=== PATIENT | male | born 1975 | race Caucasian/White ===

== ENCOUNTER 2020-11-10 15:46 | Emergency (ER) | payer OTHER, SELFPAY ==
--- NOTE | 2020-11-10 15:57 | ED.LOWEXIN ---
HPI - Extremity Injury (Lower) General Chief Complaint: Extremity Injury, Lower Stated Complaint: Right Leg Pain Time Seen by Provider: 11/10/20 16:00 Source: patient and RN notes reviewed Mode of arrival: ambulatory Limitations: no limitations History of Present Illness HPI Narrative: 45-year-old male since concern for right upper leg pain. Reports 1-1/2 weeks ago he fell through a roof, up to his upper right leg. He denies any immediate pain. Reports his right upper outer leg hurts when he bends over and, the leg below it feels numb when he bends over. He denies pain with walking, tenderness to touch, bruising, redness, abrasions, open Skin, swelling, groin pain, abdominal pain. MD complaint: leg injury Related Data Allergies Allergy/AdvReac Type Severity Reaction Status Date / Time No Known Allergies Allergy Unknown Unverified 07/15/14 13:17 Review of Systems Review of Systems: Narrative: CONSTITUTIONAL: Denies malaise, chills, sweats, or fever. CARDIOVASCULAR: Denies chest pain, palpitations, or edema. RESPIRATORY: Denies cough or dyspnea. SKIN: Denies open skin, abrasions, lacerations MUSCULOSKELETAL: Reports right upper leg pain associated with distal numbness All systems reviewed & are unremarkable except as noted in HPI and below PMFSH Comments At time of signature, agree with nursing past medical, surgical, social and family history. There is no relevant family history pertinent to the presenting complaint Exam Narrative: Exam Narrative: GENERAL: Well-appearing, well-nourished, and in no acute distress. HEAD: Normocephalic, atraumatic. EYES: PERRLA, conjunctivae clear NECK: Supple. CHEST: Speaks in full sentences. No respiratory distress. HEART: Regular rate and rhythm. Normal and equal peripheral pulses. EXTREMITIES: Right leg, hip normal strength and sensation, normal range of motion. No edema or ecchymosis. 5/5 strength with hip flexion and extension. Normal sensation with sensitivity to light touch and pain. No generalized or point tenderness. No open wounds, no skin tenting, no devitalized tissue or atrophy, no trophic changes, no obvious deformity, alignment normal, nearby joints and structures intact. Distal pulses palpable and equal bilaterally, skin warm, dry, pink. Capillary refill less than 3 seconds. Normal gait SKIN: Warm, dry, no rash. NEURO: Alert and oriented x3. PSYCH: Normal mood and affect Course Course Emergency Course: Patient is aware of diagnosis, understands and agrees to treatment plan. Anticipatory guidance given. Patient agrees to follow-up as directed and is aware of reasons to seek care at the emergency department. Portions of this record may have been created with voice recognition software Vital Signs Vital signs: Vital Signs Temperature 98.5 F 11/10/20 16:05 Pulse Rate 65 11/10/20 16:05 Respiratory Rate 16 11/10/20 16:05 Blood Pressure 118/62 11/10/20 16:05 Pulse Oximetry 98 11/10/20 16:05 Temperature 98.5 F 11/10/20 16:05 Pulse Rate 65 11/10/20 16:05 Respiratory Rate 16 11/10/20 16:05 Blood Pressure 118/62 11/10/20 16:05 Pulse Oximetry 98 11/10/20 16:05 Reviewed. MDM - Extremity Injury (Lower) MDM Narrative Medical decision making narrative: Patients injury and pain is consistent with musculoskeletal etiology. No signs of neurological or vascular compromise on exam. Compartments and tissues are soft without signs of compartment syndrome. Pain is felt appropriate for further evaluation on an outpatient basis. Critical Care Time Critical Care Time Critical Care Time: No Discharge Plan Discharge Clinical Impression: Leg pain Qualifiers: Laterality: right Qualified Code(s): M79.604 - Pain in right leg Patient Disposition: Home, Self-Care Condition: Stable Instructions: Musculoskeletal Pain (ED) Additional Instructions: Avoid activities that cause pain until the pain subsides. Ice to the area 20-30 minutes 4-6 times a
[2020-11-10 16:05] VITALS: BP 118/62; PULSE 65; RESP 16; TEMP 36.9; O2SAT 98
== END 2020-11-10 16:14 | disposition home or self-care (01) ==
PROVIDERS: Emergency Provider Nurse Practitioner
DX: M79.651 Pain in right thigh (principal)
CPT/HCPCS: 99213; G0463

== ENCOUNTER 2021-04-24 13:58 | Emergency (ER) | payer OTHER, SELFPAY ==
--- NOTE | ~2021-04-24 | XR_ITS ---
EXAMINATION: XR finger 2nd LT min 2V DATE: 04/24/2021 14:32 INDICATION: Left hand second digit injury. TECHNIQUE: 4 views of left hand second digit were obtained. COMPARISON: None. FINDINGS: Bone alignment is normal. No fracture. Joint spaces are well maintained. There is a lacerat ion of the second digit. IMPRESSION: 1. No fracture or radiopaque foreign body. Reviewed, dictated and finalized at location A.
[2021-04-24 14:06] VITALS: BP 111/71; PULSE 51; RESP 16; TEMP 36.7; O2SAT 99
--- NOTE | 2021-04-24 14:22 | ED.WOUNDLAC ---
HPI - Wound/Laceration General Chief Complaint: Wound/Laceration Stated Complaint: Laceration on finger Time Seen by Provider: 04/24/21 14:19 Source: patient and RN notes reviewed Mode of arrival: ambulatory Limitations: no limitations History of Present Illness HPI narrative: Patient presents today with a laceration to his left second finger that was sustained approximately 1 hour prior to exam. He was at work, smashed his finger while working on a car, lacerating it. He does report some numbness to the finger and denies tingling. Currently rates the pain 11/02. He is up-to-date on his tetanus vaccine. He has tried no [id number] interventions prior to arrival. Related Data Home Medications Medication Instructions Recorded Confirmed No Home Medications 04/24/21 04/24/21 Allergies Allergy/AdvReac Type Severity Reaction Status Date / Time No Known Allergies Allergy Unknown Unverified 07/15/14 13:17 Review of Systems Review of Systems: Narrative: CONSTITUTIONAL: Denies body aches, fever, chills, or sweats. EYES: Denies visual changes, redness, or discharge. ENT: Denies rhinorrhea, congestion, sore throat, or otalgia. CARDIOVASCULAR: Denies chest pain, palpitations, or edema. RESPIRATORY: Denies cough or dyspnea. GASTROINTESTINAL: Denies abdominal pain, nausea, vomiting, or diarrhea. GENITOURINARY: Denies dysuria or hematuria. SKIN: Denies rash, itching, or wounds. MUSCULOSKELETAL: Denies back pain, or myalgia. + Left second finger injury NEUROLOGIC: Denies headache, numbness, tingling, or weakness. PSYCH: Denies depression or anxiety. PMFSH Comments At time of signature, I have reviewed and agree with nursing past medical, surgical, social and family history unless otherwise noted. Please see nursing chart for further information. There is no relevant family history pertinent to the presenting complaint Exam Narrative: Exam Narrative: GENERAL: Well-appearing, well-nourished, and in no acute distress. HEAD: Normocephalic, atraumatic. EYES: EOMI. No redness or drainage. Conjunctivae normal. ENT: Mucous membranes pink and moist. NECK: Normal AROM. CHEST: No respiratory distress. EXTREMITIES: Left second finger: 2 cm full-thickness irregular laceration to the middle phalanx. Distal sensation intact. Capillary refill normal. Full AROM against resistance. SKIN: Warm, dry, no rash. Capillary refill normal. Normal skin turgor. NEURO: No focal deficits. Alert and oriented x3. Gait steady. PSYCH: Normal affect. No signs of depression or anxiety. Course Vital Signs Vital signs: Vital Signs Temperature 98.1 F 04/24/21 14:06 Pulse Rate 51 L 04/24/21 14:06 Respiratory Rate 16 04/24/21 14:06 Blood Pressure 111/71 04/24/21 14:06 Pulse Oximetry 99 04/24/21 14:06 Temperature 98.1 F 04/24/21 14:06 Pulse Rate 51 L 04/24/21 14:06 Respiratory Rate 16 04/24/21 14:06 Blood Pressure 111/71 04/24/21 14:06 Pulse Oximetry 99 04/24/21 14:06 Reviewed Procedures Laceration Laceration 1: Date: 04/24/21 Time: 15:00 Site: hand (Left second finger) Size (cm): 2 Description: irregular Local Anesthetic: lidocaine 1% Amount of anesthesia used (mL): 8 (Digital block) Pre-repair: wound explored and irrigated ====== Skin Level ====== Skin layer closed with: nylon Size (cm): 5-0 Number of sutures: 5 Technique: simple, interrupted ====== Subcutaneous Layer ====== ====== Muscle Layer ====== ====== Tendon Layer ====== Dressing: Dressed with nonadherent dressing and splint. Dressing applied by RN. Patient tolerated procedure well. Nerve Block Nerve Block 1: Nerve block date: 04/24/21 Nerve block time: 14:50 Time out performed: Yes Local Anesthetic: lidocaine 1% Amount of anesthesia used (mL): 8 Side: left (Second finger) Nerve Blocks:
--- NOTE | 2021-04-24 14:28 | PC.NURSE ---
1425 in xray. wound was cleansed during triage.
== END 2021-04-24 15:29 | disposition home or self-care (01) ==
PROVIDERS: Emergency Provider Nurse Practitioner
DX: S61.211A Laceration without foreign body of left index finger without damage to nail, initial encounter (principal); X58.XXXA Exposure to other specified factors, initial encounter; Y99.0 Civilian activity done for income or pay
CPT/HCPCS: 12001; 73140; 99213; G0463

== ENCOUNTER 2022-05-26 21:53 | Emergency (ER) | payer SELFPAY ==
[2022-05-26 22:05] VITALS: BP 148/83; PULSE 49; RESP 20; TEMP 36.6; O2SAT 100
[2022-05-26] MEDS: SODIUM CHLORIDE 0.9% IV 1,000 ML 999 ML IV CONT (22:58)
[2022-05-26] MEDS: KETOROLAC 30 MG/ML VIAL (*BKC) IV PUSH (22:59)
--- NOTE | 2022-05-26 23:04 | ED.HA ---
HPI - Headache General Chief Complaint: Headache Stated Complaint: headache Time Seen by Provider: 05/26/22 22:27 History of Present Illness HPI Narrative: Patient is a 47-year-old male who presents ER with headache. Throbbing frontal. Ongoing for last 2 days. Gradually worsening. Reports he will occasionally feel hot. No documented fevers. Denies runny nose or sore throat or productive cough. No focal numbness or weakness in arm or leg. Notes neck stiffness. Reports his boss is infected with COVID-19 but has not been around him. No chest pain or chest pressure. No thunderclap onset. Related Data Home Medications Medication Instructions Recorded Confirmed No Home Medications 04/24/21 04/24/21 Allergies Allergy/AdvReac Type Severity Reaction Status Date / Time No Known Allergies Allergy Unknown Verified 05/26/22 22:59 Review of Systems Review of Systems: All systems reviewed & are unremarkable except as noted in HPI and below Constitutional: Constitutional: Denies chills, Reports fatigue and Denies fever(s) Eyes: Eyes: Denies change in vision and Denies photophobia ENT: Denies nasal congestion and Denies sore throat Respiratory: Respiratory: Denies cough and Denies dyspnea Gastrointestinal: Gastrointestinal: Denies abdominal pain, Denies nausea and Denies vomiting Neurologic: Denies syncope, Reports headache(s), Denies focal weakness and Denies numbness PMFSH Past Medical History Medical History (Updated 05/27/22 @ 00:45 by Ever Owusu MD) Healthy adult male Surgical History Surgical History (Updated 05/26/22 @ 23:06 by Ever Owusu MD) No history of previous surgery Social History Social History (Updated 05/26/22 @ 23:07 by Ever Owusu MD) Smoking status: Current every day smoker Exam Narrative: GENERAL: Well-appearing, well-nourished, and in no acute distress. HEAD: Normocephalic, atraumatic. EYES: PERRL and EOMI. NECK: Supple. Full range of motion without meningismus. CHEST: Clear to auscultation. No respiratory distress. HEART: Regular rate and rhythm. Normal peripheral pulses. ABDOMEN: Soft, nontender, nondistended. EXTREMITIES: Normal range of motion. No edema. SKIN: Warm, dry, no rash. NEURO: Alert and oriented x3. PSYCH: Normal mood and affect. Course Course Emergency Course: Headache improved with Toradol and fluids. COVID-negative. Discharge home. Vital Signs Vital signs: Vital Signs Temperature 97.8 F 05/26/22 22:05 Pulse Rate 49 L 05/26/22 22:05 Respiratory Rate 20 05/26/22 22:05 Blood Pressure 148/83 H 05/26/22 22:05 Pulse Oximetry 100 05/26/22 22:05 Oxygen Delivery Room Air 05/26/22 22:05 Temperature 97.8 F 05/26/22 22:05 Pulse Rate 42 L 05/27/22 00:28 Respiratory Rate 13 05/27/22 00:28 Blood Pressure 108/71 05/27/22 00:28 Pulse Oximetry 97 05/26/22 23:45 Oxygen Delivery Room Air 05/26/22 22:05 MDM - Headache Lab Data Labs: Lab Results 05/26/22 Range/Units 22:57 SARS-CoV-2 RNA (RT-PCR) Negative Discharge Plan Discharge Clinical Impression: Headache Patient Disposition: Home, Self-Care Condition: Stable Instructions: General Headache (ED) Additional Instructions: Return the ER if you have fever over 100.4 ?F, you cannot keep down food or water, you have chest pain or shortness of breath, you have additional concerns. Take Tylenol or ibuprofen as needed for headache. Prescriptions: No Action No Home Medications Follow-up/Referrals: PHYSICIAN,BRUSHER [Primary Care Provider] - Mckay Salazar, DO [Physician] - 1 Week
[2022-05-26 23:05] VITALS: PULSE 43; RESP 16; O2SAT 96
[2022-05-26 23:45] VITALS: PULSE 40; RESP 14; O2SAT 97
[2022-05-26 23:47] LABS: SARS-CoV-2 RNA PCR Negative
[2022-05-27] VITALS: PULSE 43; RESP 17
[2022-05-27 00:15] VITALS: PULSE 41; RESP 15
[2022-05-27 00:28] VITALS: BP 108/71; PULSE 42; RESP 13
== END 2022-05-27 00:51 | disposition home or self-care (01) ==
PROVIDERS: Emergency Provider Emergency Medicine
DX: R51.9 Headache, unspecified (principal); Z20.822 Contact with and (suspected) exposure to COVID-19
CPT/HCPCS: 96361; 96374; 99284; C9803; J1885; J7030; U0003; U0005